=== PATIENT | male | born 1980 | race Two or more races ===

== ENCOUNTER 2024-05-20 20:30 | Outpatient (CLI) | payer SELFPAY | END 2024-05-20 20:31 | disposition critical access hospital (66) | LOC: EMS 20:30 | DX: R11.2 Nausea with vomiting, unspecified (principal); R10.9 Unspecified abdominal pain; F10.90 Alcohol use, unspecified, uncomplicated | CPT/HCPCS: A0425; A0429 ==

== ENCOUNTER 2024-05-20 21:00 | Emergency (ER) | payer SELFPAY ==
--- NOTE | 2024-05-20 21:25 | ED Physician Documentation ---
History of Present Illness - Stated complaint Stated Complaint: ABD PX - Additonal information Additional information: Patient is a 44-year-old male presenting to the emergency department with symptoms of generalized complaints patient sleeping mainly on examination. Patient appears unkept and disheveled. He Does not answer majority of questions despite technical instructor being in room and providing majority of the translation. He notes multiple complaints upper abdominal pain he also reports fatigue sleepiness occasional blurry vision to his eyes. He denies any recent falls or trauma. He does report drinking earlier this evening. He notes he only had 1 drink but unable to describe more about his past medical history of alcoholism. He notes he does not take any medications at home. He notes chills and tremors but no fevers. He denies any urinary symptoms but unable to provide more history on any nausea vomiting no history of abdominal surgeries. PD PAST MEDICAL HISTORY - Allergies Allergies/Adverse Reactions: Allergies Allergy/AdvReac Type Severity Reaction Status Date / Time No Known Drug Allergies Allergy Verified 05/20/24 21:35 PD ED PE NORMAL - Vitals Vital signs reviewed: Yes - General General: Other (Patient appears disheveled mild tremors noted in examination. Patient able to follow simple commands but does not answer all questions. He is ANO x 1. He is able to ambulate and eat and drink but patient did not answer complex questions here in the emergency department.) - Neck Neck: Supple, no meningeal sign, Other (No signs of trauma to the head no signs of neck injury or pain on examination.) - Cardiac Cardiac: RRR, No murmur, No gallop, No rub - Respiratory Respiratory: No respiratory distress, Clear bilaterally - Abdomen Abdomen: Normal bowel sounds, Non distended - Derm Derm: Normal color, No rash - Extremities Extremities: No deformity - Neuro Eye Opening: Spontaneous Motor: Localizes to Pain Verbal: Confused GCS Score: 13 Results - Vitals Vitals: Vital Signs - 24 hr 05/20/24 05/20/24 21:07 21:12 Temperature 37.0 C Heart Rate 110 H 112 H Respiratory 18 16 Rate Blood Pressure 131/106 H 120/95 H O2 Saturation 98 97 Oxygen O2 Source Room air - Labs Labs: Laboratory Tests 05/20/24 05/20/24 21:38 21:38 WBC 5.3 RBC 4.22 L Hgb 10.0 L Hct 32.7 L MCV 77.5 L MCH 23.7 L MCHC 30.6 L RDW 21.7 H Plt Count 163 MPV 10.0 Neut # (Auto) 4.2 Lymph # (Auto) 0.5 L Chase # (Auto) 0.3 Eos # (Auto) 0.2 Baso # (Auto) 0.1 Absolute Nucleated RBC 0.00 Nucleated RBC % 0.0 Manual Slide Review Indicated Platelet Estimate NORMAL (130-450,000) Platelet Morphology NORMAL APPEARANCE RBC Morph Micro Appear 1+ HYPOCHROMASIA Sodium 135 Potassium 3.6 Chloride 96 L Carbon Dioxide 20 L Anion Gap 19.0 H BUN 7 Creatinine 0.5 L Estimated GFR (MDRD) 181 Glucose 121 H Calcium 8.8 Magnesium 1.5 L Total Bilirubin 0.9 AST 126 H ALT 69 H Alkaline Phosphatase 120 Troponin I High Sens 5.8 Total Protein 8.1 Albumin 4.5 Globulin 3.6 Albumin/Globulin Ratio 1.3 Lipase 80 Ethyl Alcohol 291.6 PD Medical Decision Making - ED course Complexity details: reviewed results ED course: Patient is a 44-year-old male presenting to the emergency department with abdominal pain in epigastric region generalized fatigue chills and ANO x 1 on evaluation. Patient smells of alcohol appears disheveled on examination. Patient answers only some of the questions despite technical instructor being in room and translating everything. Vitals on arrival show tachycardia but normotensive afebrile and no signs of hypoxia. Labs obtained here in emergency department do show high anion gap of 19 but no significant electrolyte abnormality blood sugar stable. Pending urine analysis and urine drug screen at this time. Serum osmolality and lactic acid level added on. Patient already received 1 L of fluids here in emergency department. Blood sugar elevated in the 290s on arrival. Will continue to trend this while giving fluids here in emergency department. No significant leukocytosis. Patient does appear anemic though at times. No baseline to compare to but no signs of bleeding on arrival. Patient has no signs of hematemesis concerning for any upper GI bleed. No significant EFRAIN or significant kidney dysfunction there does appear slight elevation in LFTs related to 2:1 ratio consistent with liver injury secondary to alcohol use. No baseline to compare to as well. Patient given thiamine folate fluids and magnesium replacement as magnesium was 1.5 here in the emergency department. 1036: Patient taken over by Dr. Cordero for re-evaluation here in the ED for persistent symptoms.
[2024-05-20] MEDS: SODIUM CHLORIDE 0.9% 1,000 ML IV STA ×2 (21:37→22:37)
[2024-05-20 21:43] LABS: BASOPHILS # (AUTO) 0.1 10^3/uL (0.0-0.1); BASOPHILS % (AUTO) 1.1 %; EOSINOPHILS # (AUTO) 0.2 10^3/uL (0.0-0.7); EOSINOPHILS % (AUTO) 3.8 %; HCT - HEMATOCRIT 32.7 % (42.0-52.0); LYMPHOCYTES # (AUTO) 0.5 10^3/uL (1.5-3.5); LYMPHOCYTES % (AUTO) 9.1 %; MEAN CORPUSCULAR HEMOGLOBIN 23.7 pg (27.0-31.0); MEAN CORPUSCULAR HGB CONC 30.6 g/dL (32.0-36.0); MEAN CORPUSCULAR VOLUME 77.5 fL (80.0-94.0); MONOCYTES # (AUTO) 0.3 10^3/uL (0.0-1.0); MONOCYTES % (AUTO) 6.4 %; NEUTROPHILS # (AUTO) 4.2 10^3/uL (1.5-6.6); NEUTROPHILS % (AUTO) 78.8 %; PLT - PLATELET COUNT 163 10^3/uL (130-450); RED BLOOD COUNT 4.22 10^6/uL (4.70-6.10); RED CELL DISTRIBUTION WIDTH 21.7 % (12.0-15.0); WHITE BLOOD COUNT 5.3 x10^3/uL (4.8-10.8)
[2024-05-20] MEDS: ONDANSETRON 4 MG/2 ML VIAL IVP STA (21:46)
[2024-05-20 22:07] LABS: ETOH - ETHANOL 291.6 mg/dL; LIPASE 80 U/L (11-82); MAGNESIUM 1.5 mg/dL (1.7-2.3); TROPONIN I HIGH SENSITIVITY 5.8 ng/L (2.3-19.7)
[2024-05-20 22:10] LABS: ALBUMIN 4.5 g/dL (3.2-5.5); ALBUMIN/GLOBULIN RATIO 1.3 (1.0-2.2); ALKALINE PHOSPHATASE 120 IU/L (42-121); ALT ALANINE AMINOTRANSFERASE 69 IU/L (10-60); AST ASPARTATE AMINOTRANSFERASE 126 IU/L (10-42); BILIRUBIN,TOTAL 0.9 mg/dL (0.2-1.0); BUN - BLOOD UREA NITROGEN 7 mg/dL (6-20); CALCIUM 8.8 mg/dL (8.5-10.3); CARBON DIOXIDE - CO2 20 mmol/L (21-32); CHLORIDE 96 mmol/L (101-111); CREATININE 0.5 mg/dL (0.6-1.3); GFR - MDRD 181 (>89); GLUCOSE 121 mg/dL (74-104); POTASSIUM 3.6 mmol/L (3.5-4.5); SODIUM 135 mmol/L (135-145); TOTAL PROTEIN 8.1 g/dL (6.4-8.9)
[2024-05-20 22:14] LABS: PLATELET ESTIMATE, MANUAL NORMAL (130-450,000) (NORMAL); PLATELET MORPHOLOGY NORMAL APPEARANCE (NORMAL); SLIDE REVIEW? Indicated
[2024-05-20 22:34] LABS: AMPHETAMINE SCREEN,URINE NEGATIVE (NEGATIVE); BARBITURATE SCREEN,UR NEGATIVE (NEGATIVE); BENZODIAZEPINES SCREEN, URINE NEGATIVE (NEGATIVE); BUPRENORPHINE SCREEN, URINE NEGATIVE (NEGATIVE); COCAINE SCREEN URINE NEGATIVE (NEGATIVE); METHADONE SCREEN, URINE NEGATIVE (NEGATIVE); METHAMPHETAMINES SCREEN, URINE NEGATIVE (NEGATIVE); OPIATE SCREEN, URINE NEGATIVE (NEGATIVE); OXYCODONE SCREEN, URINE NEGATIVE (NEGATIVE); THC CANNABINOID SCREEN, URINE NEGATIVE (NEGATIVE); TRICYCLIC ANTIDEPRESSANT,URINE NEGATIVE (NEGATIVE)
[2024-05-20] MEDS: FOLIC ACID INJ 1 MG in SODIUM CHLORIDE 0.9% 1,000 ML IV STA (22:37)
[2024-05-20] MEDS: THIAMINE INJ 100 MG in SODIUM CHLORIDE 0.9% 50 ML IV STA (22:37)
[2024-05-20] MEDS: THIAMINE 100 MG TABLET PO STA (22:50)
[2024-05-20 23:09] LABS: ACETAMINOPHEN < 0.1 ug/mL; SALICYLATE < 1.5 mg/dL
[2024-05-20] MEDS: FOLIC ACID 1 MG TABLET PO SCH (23:21)
[2024-05-20] MEDS: MAGNESIUM OXIDE 400 MG TABLET PO ONE (23:21)
[2024-05-20] MEDS: PANTOPRAZOLE 40 MG TABLET PO STA (23:52)
[2024-05-21] MEDS: GI COCKTAIL 120 ML BOTTLE PO ONE (00:13)
[2024-05-21] MEDS: LIDOCAINE VISCOUS 2% 15 ML UDC MM STA (00:41)
[2024-05-21] MEDS: MAG HYDROX/AL HYDROX/SIMETH 30 ML UDC PO STA (00:42)
[2024-05-21] MEDS: LORazepam 1 MG TABLET PO STA (00:42)
--- NOTE | 2024-05-21 00:51 | ED Physician Documentation ---
ED Addendum - Addendum Addendum: 05/21/24 02:20 Sign out at 10:45PM. This is a [place] speaking 44yo M who presented via EMS with abdominal pain in setting of reported alcohol use. Ethanol 294. He appeared disheveled but stated he has place to stay. Exam showed mild epigastric tenderness. Labs with elevated AG, AST/ALT in setting of ethanol use, hypomagnesemia (mag given). He also got thiamine, folate, fluids. Urine, ASA, tylenol pending. PLAN: follow up UDS, ASA, tylenol, reassess, anticipating discharge if clinically improves. Lactate elevated. Fluids given. Patient afebrile without leukocytosis and does not appear septic clinically. ASA negative. Tylenol negative. UDS negative. I suspect component of alcoholic gastritis may have caused mild epigastric discomfort; giving GI cocktail, pantoprazole. Patient now more tremulous, suspicious for alcohol withdrawal as he has metabolized very elevated prior ethanol (to 290s); withdrawal appears overall mild, and I am ordering 2mg PO ativan. His clinical course does not seem consistent currently with toxic alcohol ingestion, and I think serum osms sent previously are now unlikely to post exchange manager. He is ambulatory. He stays with a friend but cannot get ride yet. Note I reviewed EKG which does not show afib but rather sinus tachycardia, without clear acute ischemia or immediately concerning interval prolongation. Repeat lactate improving. Repeat CMP with grossly stable sodium, bicarb, with improved AG to 16, stable Cr, improved AST and ALT, bili and ALP WNL. Patient clearly clinically improving. He has benign abdomen and is resting comfortably on reassessment, with very mild tremulousness now. Giving small dose librium 25mg PO and additional 500mg NS, and will repeat CBC/CMP at roughly 0400. 05/21/24 06:11 Repeat CBC shows decrease in all cell counts, suspicious for potential dilution in the setting of substantial fluids. Patient with no clear clinical evidence of bleeding. Nonetheless, I had him stool and assessed to ensure no melena; stool is brown, reassuring against UGIB. Tachycardia has resolved, and he is normotensive, well-perfused appearing. Repeat CMP again with stable mild hyponatremia, resolution of anion gap elevation and decreased bicarb, continued improvement of AST elevation, ALT and alk phos and bili room within normal limits. Lactate elevation fully resolved. Lab abnormalities appear suitable for outpatient follow up. On review, I suspect now alcohol use led to alcoholic gastritis, ketoacidosis, and ultimately withdrawal. Patient has shown clear improvement here, both clinically and in lab markers. He is tolerating PO, ambulatory, appears comfortable, no longer in withdrawal. I had extensive conversation via accounts payable representative. He has a place to stay. He appears stable for discharge with PCP follow up information. No SI or HI or evidence of delirium tremens. He has capacity. Work up results discussed for follow up, and he understands. I am prescribing 3d of Mag oxide 400mg PO Qday, Zofran, and 14d of Pantoprazole. I gave counseling regarding cessation of alcohol as well. Discharging in stable condition. Repeat exams and vital signs reassuring. Patient questions answered and plan reviewed. Strong return precautions given. Patient discharged. 05/21/24 06:14
[2024-05-21 00:57] LABS: ALBUMIN 4.2 g/dL (3.2-5.5); ALBUMIN/GLOBULIN RATIO 1.3 (1.0-2.2); BILIRUBIN,TOTAL 0.9 mg/dL (0.2-1.0); CALCIUM 8.4 mg/dL (8.5-10.3); CREATININE 0.4 mg/dL (0.6-1.3); POTASSIUM 3.6 mmol/L (3.5-4.5); TOTAL PROTEIN 7.4 g/dL (6.4-8.9)
[2024-05-21] MEDS: chlordiazePOXIDE 25 MG CAPSULE PO STA (01:47)
[2024-05-21] MEDS: SODIUM CHLORIDE 0.9% 500 ML IV ONE (01:47)
[2024-05-21 04:14] LABS: BASOPHILS # (AUTO) 0.1 10^3/uL (0.0-0.1); BASOPHILS % (AUTO) 1.1 %; EOSINOPHILS % (AUTO) 0.2 %; HCT - HEMATOCRIT 27.9 % (42.0-52.0); HGB - HEMOGLOBIN 8.6 g/dL (14.0-18.0); LYMPHOCYTES # (AUTO) 1.5 10^3/uL (1.5-3.5); LYMPHOCYTES % (AUTO) 32.4 %; MEAN CORPUSCULAR HEMOGLOBIN 24.2 pg (27.0-31.0); MEAN CORPUSCULAR HGB CONC 30.8 g/dL (32.0-36.0); MEAN CORPUSCULAR VOLUME 78.6 fL (80.0-94.0); MEAN PLATELET VOLUME 10.5 fL (7.4-11.4); MONOCYTES # (AUTO) 0.5 10^3/uL (0.0-1.0); MONOCYTES % (AUTO) 10.6 %; NEUTROPHILS # (AUTO) 2.6 10^3/uL (1.5-6.6); NEUTROPHILS % (AUTO) 55.3 %; PLT - PLATELET COUNT 147 10^3/uL (130-450); RED BLOOD COUNT 3.55 10^6/uL (4.70-6.10); RED CELL DISTRIBUTION WIDTH 21.4 % (12.0-15.0); WHITE BLOOD COUNT 4.6 x10^3/uL (4.8-10.8)
[2024-05-21 04:15] LABS: SLIDE REVIEW? Indicated
[2024-05-21 04:36] LABS: PLATELET ESTIMATE, MANUAL NORMAL (130-450,000) (NORMAL)
[2024-05-21 04:38] LABS: ALBUMIN/GLOBULIN RATIO 1.3 (1.0-2.2); BILIRUBIN,TOTAL 0.9 mg/dL (0.2-1.0); CALCIUM 8.4 mg/dL (8.5-10.3); CREATININE 0.4 mg/dL (0.6-1.3); POTASSIUM 3.5 mmol/L (3.5-4.5); TOTAL PROTEIN 7.1 g/dL (6.4-8.9)
[2024-05-21 05:33] VITALS: BP 114/63; O2SAT 97
[2024-05-21] MEDS ORDERED: MAGNESIUM OXIDE 400 MG TABLET PO SCH (08:00)
[2024-05-21] MEDS ORDERED: FOLIC ACID 1 MG TABLET PO SCH ×2 (09:00→23:00)
== END 2024-05-21 05:54 | disposition home or self-care (01) ==
LOC: ED 21:00
DX: R10.13 Epigastric pain (principal); E83.42 Hypomagnesemia
CPT/HCPCS: 36415; 80053; 80143; 80179; 80306; 82077; 83605; 83690; 83735; 83930; 84484; 85025; 93005; 96361; 96374; 99284; A9270; J8499